=== PATIENT | male | born 1995 | race African-American/Black ===

== ENCOUNTER 2016-11-13 10:54 | Emergency (ER) | payer SELFPAY | END 2016-11-13 11:55 | disposition home or self-care (01) | LOC: D.ER 10:54 | DX: S61.012A Laceration without foreign body of left thumb without damage to nail, initial encounter (principal); W45.8XXA Other foreign body or object entering through skin, initial encounter; Y93.89 Activity, other specified; Y92.830 Public park as the place of occurrence of the external cause ==

== ENCOUNTER 2016-11-20 14:21 | Emergency (ER) | payer SELFPAY | END 2016-11-20 16:18 | disposition home or self-care (01) | LOC: D.ER 14:21 | DX: S61.012D Laceration without foreign body of left thumb without damage to nail, subsequent encounter (principal); X58.XXXD Exposure to other specified factors, subsequent encounter; Y92.89 Other specified places as the place of occurrence of the external cause; Z48.02 Encounter for removal of sutures ==

== ENCOUNTER 2018-01-03 23:15 | Emergency (ER) | payer SELFPAY ==
[~2018-01-03] VITALS: Ht 170.2 cm; Wt 68.2 kg
[2018-01-03 23:22] VITALS: Ht 170.2 cm; Wt 68.2 kg
[2018-01-04] MEDS ORDERED: KEFLEX500 MG PO (02:25)
[2018-01-04] MEDS ORDERED: NORCO 7.5/325 T1 TA1 PO (02:25)
[2018-01-04 03:05] VITALS: BP 108/65
== END 2018-01-04 03:00 | disposition home or self-care (01) ==
LOC: D.ER 23:15
DX: S71.112A Laceration without foreign body, left thigh, initial encounter (principal); W26.0XXA Contact with knife, initial encounter; Y93.89 Activity, other specified; Y92.019 Unspecified place in single-family (private) house as the place of occurrence of the external cause; F17.200 Nicotine dependence, unspecified, uncomplicated